=== PATIENT | female | born 1980 ===

== ENCOUNTER 2016-05-26 19:12 | Inpatient (IN) | payer OTHER ==
[~2016-05-26 19:12] MED LIST: Sodium Chloride 0.9% 1,000 ML IV ONE; Sodium Chloride 0.9% 500 ML IV ONE
[2016-05-26] MEDS ORDERED: Sodium Chloride 0.9% 1,000 ML IV STA ×3 (19:42→21:36)
--- NOTE | 2016-05-26 20:49 | ED PDOC ---
HPI: Abdomen Time Seen by Provider: 05/26/16 19:29 Chief Complaint (Nursing): Abdominal Pain History Per: Patient (states that she is who is now 8 weeks and who came to the ER from the [facility] after experience acute onset of severe lower abdominal pain. She denies nausea or vomiting or vaginal bleeding. The pain is located in the lower abdomen with predominance in the left side. She had a miscarriage in February.) History/Exam Limitations: no limitations Onset/Duration Of Symptoms: Sudden Onset Past Medical History Reviewed: Historical Data, Nursing Documentation, Vital Signs Vital Signs: Last Vital Signs Temp 97.9 F 05/26/16 19:13 Pulse 49 L 05/26/16 20:24 Resp 16 05/26/16 20:24 BP 78/46 L 05/26/16 20:24 Pulse Ox 100 05/26/16 21:26 - Medical History PMH: No Chronic Diseases - Surgical History Surgical History: No Surg Hx - Family History Family History: States: No Known Family Hx - Living Arrangements Living Arrangements: With Family - Social History Current smoker - smoking cessation education provided: No - Allergies Allergies/Adverse Reactions: Allergies Allergy/AdvReac Type Severity Reaction Status Date / Time No Known Allergies Allergy Verified 05/26/16 19:13 Review of Systems ROS Statement: Except As Marked, All Systems Reviewed And Found Negative Constitutional: Negative for: Fever, Chills Gastrointestinal: Positive for: Abdominal Pain. Negative for: Nausea, Vomiting , Diarrhea, Constipation Genitourinary Female: Negative for: Dysuria, Vaginal Discharge, Vaginal Bleeding Physical Exam - Reviewed Nursing Documentation Reviewed: Yes Vital Signs Reviewed: Yes - Physical Exam Appears: Positive for: Well, Non-toxic, Uncomfortable Head Exam: Positive for: ATRAUMATIC, NORMAL INSPECTION, NORMOCEPHALIC Skin: Positive for: Normal Color, Warm, DRY Eye Exam: Positive for: EOMI, Normal appearance, PERRL ENT: Positive for: Normal ENT Inspection Neck: Positive for: Normal, Painless ROM Cardiovascular/Chest: Positive for: Regular Rate, Rhythm Respiratory: Positive for: CNT, Normal Breath Sounds Gastrointestinal/Abdominal: Positive for: Bowel Sounds, Tenderness (LLQ and suprapubic area) Back: Positive for: Normal Inspection Extremity: Positive for: Normal ROM Neurologic/Psych: Positive for: Alert, Oriented - Laboratory Results Result Diagrams: 05/26/16 19:51 05/26/16 19:51 - ECG O2 Sat by Pulse Oximetry: 100 - Progress Re-evaluation Time: 22:00 Condition: Unchanged - Critical Care Total Time (In Min): 45 Medical Decision Making Medical Decision Making: patient became hypotensive. A second IV line was placed with additional IVF given. She is awaiting US to be done to exclude threatened ab vs. ectopic . 8.30p - Case d/w Dr. Evans, covering for Dr. Decker. Asked that OB hospitalist be involved if urgent intervention is necessary 10.20 - US preliminary report: rupture ectopic. Dr. Joseph notified and seeing patient now and will take patient to the OR. Disposition - Clinical Impression Clinical Impression: Ruptured ectopic - Patient ED Disposition Is Patient to be Admitted: Yes Doctor Will See Patient In The: Hospital - Disposition Disposition: Transfer of Care Disposition Time: 22:31 Condition: GUARDED - Pt Status Changed To: Hospital Disposition Of: Inpatient - Admit Certification Admit to Inpatient:: After my assessment, the patient will require hospitalization for at least two midnights. This is because of the severity of symptoms shown, intensity of services needed, and/or the medical risk in this patient being treated as an outpatient.
[2016-05-26 20:52] LABS: BASO % 0.3 % (0.0-2.0); EOS # 0.2 K/uL (0.0-0.7); EOS % 1.1 % (0.0-4.0); HEMATOCRIT 36.9 % (34.0-47.0); LYMPH % 33.8 % (20.0-40.0); MEAN CELL VOLUME 82.8 fl (81.0-99.0); MEAN CORPUSCULAR HEMOGLOBIN 27.5 pg (27.0-31.0); MEAN CORPUSCULAR HGB CONC 33.3 g/dL (33.0-37.0); MEAN PLATELET VOLUME 6.9 fl (7.2-11.7); MONO # 0.9 K/uL (0.0-0.8); NEUT # 8.7 K/uL (1.8-7.0); NEUT % 58.8 % (50.0-75.0); NRBC % 0.1 % (0.0-0.0); RED CELL DISTRIBUTION WIDTH 13.3 % (11.5-14.5); WHITE BLOOD COUNT 14.8 K/uL (4.8-10.8)
[2016-05-26 20:55] LABS: BLOOD UREA NITROGEN 11 mg/dl (7-17); CALCIUM 9.1 mg/dL (8.4-10.2); CARBON DIOXIDE 23 mmol/L (22-30); CHLORIDE 102 mmol/L (98-107); GFR AFRICAN-AMERICAN > 60; GLUCOSE,RANDOM 138 mg/dL (65-105); POTASSIUM 3.8 MMOL/L (3.6-5.0); SODIUM 143 mmol/l (132-148)
[2016-05-26] MEDS ORDERED: Propofol 10 mg/ml Inj (20 ML) ONE (23:03)
[2016-05-26] MEDS ORDERED: Neostigmine Methylsulfate 3mg/3ml Syringe IV ONE (23:04)
[2016-05-26] MEDS ORDERED: Rocuronium 10 mg/ml (5 ml) ONE (23:04)
[2016-05-26] MEDS ORDERED: Ketamine 50 mg/ml Inj (10 ml) ONE (23:04)
[2016-05-26] MEDS ORDERED: Midazolam 2 MG/2 ML VIAL ONE (23:04)
[2016-05-26] MEDS ORDERED: Etomidate 20 mg/10ml Inj IV ONE (23:06)
--- NOTE | 2016-05-26 23:09 | US ---
PROCEDURE: OB Pelvic Ultrasound HISTORY: abd pain beta HCG level [id number] COMPARISON: None available. FINDINGS: UTERUS: 6.6 x 4.2 anteverted CERVIX: Long and closed. No cervical abnormality seen. 3.8 cm RIGHT OVARY: Measures 3.6 x 2.7 x 2.9 cm. No mass lesion. Normal flow. LEFT OVARY: Ectopic left adnexa measuring 4.7 x 3.9 x 5.1 cm with pole. No heart rate. FREE FLUID: Large amount of heterogeneous fluid in the pelvis OTHER FINDINGS: Dr. Hill was informed by the pc tech at the time of the exam IMPRESSION: Ectopic left adnexa
[2016-05-26] MEDS ORDERED: Sevoflurane - Inhalation Anesthetic Liq (250 ml) ONE (23:10)
[2016-05-26] MEDS ORDERED: Succinylcholine 200 mg/10 ml Inj IV ONE (23:16)
--- NOTE | 2016-05-26 23:18 | CP.PCM.CON ---
History of Present Illness - History of Present Illness History of Present Illness: Pt presents to er c/o abdominal pain stabbing in nature radiating toward back. Pt had + test scan vaginal bleeding. took no medications Review of Systems - Constitutional Constitutional: As Per HPI - EENT Eyes: As Per HPI Nose/Mouth/Throat: As Per HPI - Breasts Breasts: As Per HPI - Cardiovascular Cardiovascular: As Per HPI - Respiratory Respiratory: As Per HPI - Gastrointestinal Gastrointestinal: As Per HPI - Genitourinary Genitourinary: As Per HPI - Reproductive: Female Reproductive:Female: As Per HPI - Menstruation Menstruation: As Per HPI - Musculoskeletal Musculoskeletal: As Per HPI - Integumentary Integumentary: As Per HPI - Neurological Neurological: As Per HPI - Psychiatric Psychiatric: As Per HPI - Endocrine Endocrine: As Per HPI Past Patient History - Past Social History Smoking Status: Unknown If Ever Smoked - PSYCHIATRIC Hx Substance Use: No Meds Allergies/Adverse Reactions: Allergies Allergy/AdvReac Type Severity Reaction Status Date / Time No Known Allergies Allergy Verified 05/26/16 19:13 Physical Exam - Constitutional Appears: Other - Eye Exam Eye Exam: Normal appearance - ENT Exam ENT Exam: Mucous Membranes Moist - Neck Exam Neck exam: Positive for: Normal Inspection - Respiratory Exam Respiratory Exam: NORMAL BREATHING PATTERN - Cardiovascular Exam Cardiovascular Exam: REGULAR RHYTHM - GI/Abdominal Exam GI & Abdominal Exam: Normal Bowel Sounds - Extremities Exam Extremities exam: Positive for: normal inspection - Back Exam Back exam: NORMAL INSPECTION - Psychiatric Exam Psychiatric exam: Normal Affect Results - Vital Signs Recent Vital Signs: Last Vital Signs Temp 97.9 F 05/26/16 19:41 Pulse 70 05/26/16 22:33 Resp 14 05/26/16 22:33 BP 80/40 L 05/26/16 22:33 Pulse Ox 100 05/26/16 22:33 - Labs Result Diagrams: 05/26/16 19:51 05/26/16 19:51 Assessment & Plan - Assessment and Plan (Free Text) Assessment: ruptured ectopic informed consent obtained discussed r/b/a to surgery all questions answered will admit with discharge in am analgesia as needed
[2016-05-26] MEDS ORDERED: Bupivacaine 0.5% Inj(30mL) IJ ONE (23:55)
[2016-05-27] MEDS ORDERED: HYDROmorphone 0.5 mg/0.5 ml ISec IVP PRN (02:23)
[2016-05-27] MEDS ORDERED: DiphenhydrAMINE 50 mg/ml Inj IVP ONE ×2 (02:28→10:56)
[2016-05-27] MEDS ORDERED: Lactated Ringer's 1,000 ML IV SCH (02:30)
[2016-05-27 03:28] LABS: BASO # 0.1 K/uL (0.0-0.2); BASO % 0.6 % (0.0-2.0); HEMATOCRIT 25.2 % (34.0-47.0); MEAN CELL VOLUME 86.7 fl (81.0-99.0); MEAN CORPUSCULAR HEMOGLOBIN 29.2 pg (27.0-31.0); MEAN CORPUSCULAR HGB CONC 33.6 g/dL (33.0-37.0); MEAN PLATELET VOLUME 6.7 fl (7.2-11.7); MONO # 0.4 K/uL (0.0-0.8); MONO % 2.6 % (0.0-10.0); NEUT # 14.8 K/uL (1.8-7.0); NEUT % 90.8 % (50.0-75.0); PLATELET COUNT 204 K/uL (130-400); RED CELL DISTRIBUTION WIDTH 14.2 % (11.5-14.5); WHITE BLOOD COUNT 16.3 K/uL (4.8-10.8)
[2016-05-27 03:32] LABS: CHLORIDE 115 mmol/L (98-107); GFR AFRICAN-AMERICAN > 60; SODIUM 139 mmol/l (132-148)
[2016-05-27 03:33] LABS: POTASSIUM 4.5 MMOL/L (3.6-5.0)
[2016-05-27 03:35] LABS: ALKALINE PHOSPHATASE 28 U/L (38-126); ALT/SGPT 29 U/L (9-52); AST/SGOT 23 U/L (14-36); BILIRUBIN,TOTAL 0.7 mg/dl (0.2-1.3); BLOOD UREA NITROGEN 8 mg/dl (7-17); CARBON DIOXIDE 15 mmol/L (22-30); GLUCOSE,RANDOM 169 mg/dL (65-105); PARTIAL THROMBOPLASTIN TIME 30.5 SECONDS (23.3-32.5); TOTAL PROTEIN 3.7 G/DL (6.3-8.2)
[2016-05-27 03:39] LABS: ALB/GLOB RATIO 0.9 (1.0-2.1); CALCIUM 5.5 mg/dL (8.4-10.2)
--- NOTE | 2016-05-27 03:47 | CP.PCM.CON ---
History of Present Illness - History of Present Illness History of Present Illness: Attending: Romario Joseph MD PCP: Elmo Decker MD Reason for Consult: Critical care Management Chief Complaint: s/p Ectopic left Laparoscopy HPI: Patient seen post Surgery in the ICU. She is a 36 years old female with no significant medical hx, with a miscarriage in February 2016, and now 8 weeks , came to the ED with an acute unset of a sharp, left lower abdominal pain at rest, radiating to the back. not associated with nausea,vomits , dysuria nor urinary frequency nor fever. Trans vaginal Ultrasound in ED showed left adnexal ectopic . She was taken to surgery for an Ectopic left laparoscopy. where she was found to have lost 2 Liters of blood from the ruptured ectopic . She is now in ICU for Critical care management and is been transfused Blood products. Her initial Hb was 12g/dl and has fallen to 8.5 g/dl with 2 units of PRBC administered. PMH: No chronic Disease PSH: No Surg Hx SH: No cigarettes Smoking; No Alcohol use; No illegal drug use; Live with the family FH: No Known Family Hx Allergies: NKDA Review of Systems - Review of Systems Systems not reviewed;Unavailable: Other Review of Systems: Review of systems is limited because the patient is post Surgery and some what sedated. - Constitutional Constitutional: absent: Fever - EENT Nose/Mouth/Throat: absent: Epistaxis, Nasal Discharge - Cardiovascular Cardiovascular: absent: Chest Pain, Dyspnea - Respiratory Respiratory: absent: Cough, Dyspnea, Wheezing - Gastrointestinal Gastrointestinal: absent: Diarrhea, Vomiting Additional comments: left lower quadrant abdominal pain - Genitourinary Genitourinary: absent: Dysuria, Urinary Frequency - Neurological Neurological: absent: Focal Weakness - Psychiatric Psychiatric: absent: Anxiety, Depression - Endocrine Endocrine: absent: Polydipsia, Polyphagia - Hematologic/Lymphatic Hematologic: absent: Easy Bleeding, Easy Bruising Past Patient History - Past Medical History & Family History Past Medical History?: No - Past Social History Smoking Status: Never Smoked Chewing Tobacco Use: No Cigar Use: No Alcohol: None Drugs: Denies Home Situation {Lives}: With Family - CARDIAC Hx Cardiac Disorders: No - PULMONARY Hx Respiratory Disorders: No - NEUROLOGICAL Hx Neurological Disorder: No - HEENT Hx HEENT Problems: No - RENAL Hx Chronic Kidney Disease: No - ENDOCRINE/METABOLIC Hx Endocrine Disorders: No - HEMATOLOGICAL/ONCOLOGICAL Hx Blood Disorders: No - INTEGUMENTARY Hx Dermatological Problems: No - MUSCULOSKELETAL/RHEUMATOLOGICAL Hx Musculoskeletal Disorders: No - GASTROINTESTINAL Hx Gastrointestinal Disorders: No - GENITOURINARY/GYNECOLOGICAL Hx Genitourinary Disorders: No - PSYCHIATRIC Hx Emotional Abuse: No Hx Physical Abuse: No Hx Substance Use: No - SURGICAL HISTORY Hx Surgeries: Yes Other/Comment: Ectopic left laparoscopy - ANESTHESIA Hx Anesthesia: Yes Hx Anesthesia Reactions: No Meds Allergies/Adverse Reactions: Allergies Allergy/AdvReac Type Severity Reaction Status Date / Time No Known Allergies Allergy Verified 05/26/16 19:13 - Medications Medications: Current Medications Hydromorphone HCl (Dilaudid) 0.5 mg IVP Q5M PRN PRN Reason: Pain, moderate (4-7) Stop: 05/27/16 04:24 Lactated Ringer's (Lactated Ringer's) 1,000 mls @ 125 mls/hr IV .Q8H RAKAN Stop: 05/27/16 23:59 Meperidine HCl (Demerol) 25 mg IVP ONCE PRN PRN Reason: Shivering/Rigor Stop: 05/27/16 04:25 Ondansetron HCl (Zofran Inj) 4 mg IVP ONCE PRN PRN Reason: Nausea/Vomiting Stop: 05/27/16 04:24 Physical Exam - Constitutional Appears: No Acute Distress - Head Exam Head Exam: ATRAUMATIC, NORMAL INSPECTION, NORMOCEPHALIC - Eye Exam Eye Exam: Normal appearance Pupil Exam: NORMAL ACCOMODATION - ENT Exam ENT Exam: Normal Exam, Normal External Ear Exam, Normal Oropharynx - Neck Exam Neck exam: Positive for: Normal Inspection. Negative for: Lymphadenopathy, Tenderness - Respiratory Exam Respiratory Exam: Clear to Auscultation Bilateral. absent: Rales, Rhonchi, Wheezes - Cardiovascular Exam Cardiovascular Exam: REGULAR RHYTHM, RRR, +S1, +S2. absent: Gallop - GI/Abdominal Exam Additional comments: Post surgical dressings. Soft decreased bowel sounds, Post surgical abdominal pains. - Rectal Exam Rectal Exam: Deferred - Extremities Exam Extremities exam: Positive for: normal inspection. Negative for: calf tenderness, full ROM, pedal edema - Back Exam Back exam: absent: CVA tenderness (L), CVA tenderness (R) - Neurological Exam Neurological exam: Reflexes Normal Additional comments: Sleepy, no facial droop, moving all extremities - Psychiatric Exam Psychiatric exam: Flat Affect - Skin Skin Exam: Dry, Intact, Normal Color Additional comments: Cool Skin Results - Vital Signs Recent Vital Signs: Last Vital Signs Temp 95.0 F L 05/27/16 02:15 Pulse 78 05/27/16 02:15 Resp 24 05/27/16 02:15 BP 105/66 05/27/16 02:15 Pulse Ox 100 05/27/16 02:15 - Labs Result Diagrams: 05/27/16 03:27 05/27/16 03:27 Labs: Laboratory Results - last 24 hr 05/27/16 03:27 WBC 16.3 H RBC 2.91 L Hgb 8.5 L D Hct 25.2 L MCV 86.7 D MCH 29.2 MCHC 33.6 RDW 14.2 Plt Count 204 D MPV 6.7 L Neut % (Auto) 90.8 H Lymph % (Auto) 6.0 L [place] % (Auto) 2.6 Eos % (Auto) 0.0 Baso % (Auto) 0.6 Neut # 14.8 H Lymph # 1.0 [place] # 0.4 Eos # 0.0 Baso # 0.1 PT 13.3 H INR 1.28 H APTT 30.5 Sodium 139 Potassium 4.5 Chloride 115 H Carbon Dioxide 15 L Anion Gap 14 BUN 8 Creatinine 0.5 L Est GFR ( Amer) > 60 Est GFR (Non-Af Amer) > 60 Random Glucose 169 H Calcium 5.5 L* D Total Bilirubin 0.7 AST 23 ALT 29 Alkaline Phosphatase 28 L Total Protein 3.7 L Albumin 1.8 L Globulin 1.9 L Albumin/Globulin Ratio 0.9 L - Imaging and Cardiology Transvaginal US Status: Report reviewed by me Additional comment: Ectopic left adnexa. Assessment & Plan - Assessment and Plan (Free Text) Assessment: #. Ruptured Ectopic s/p Ectopic left Laparoscopy #. Acute Blood loss Anemia #. Reactive Neutrophilic Leukocytosis Plan: 36 years old female with no significant medical hx, with a miscarriage in February 2016, and now 8 weeks , came to the ED with an acute unset of a sharp, left lower abdominal pain at rest, radiating to the back. Trans vaginal Ultrasound in ED showed left adnexal ectopic . She was taken to surgery for an Ectopic left laparoscopy. where she was found to have lost 2 Liters of blood from the ruptured ectopic . She is now in ICU for Critical care management and is been transfused Blood products. Her initial Hb was 12g/dl and has fallen to 8.5 g/dl with 2 units of PRBC administered. #. Ruptured Ectopic s/p Ectopic left Laparoscopy - [facility] management -Pain management #. Acute Blood loss Anemia - 2 units of PRBC already transfused and Hb found to have fallen from 12g/dl to 8.5g/dl. I will transfuse 2 more units of PRBC. But a unit of FFP before the first unit of PRBC and 1 unit of Platelets after the first unit of PRBC. - Follow HB #. Reactive Neutrophilic Leukocytosis - follow WBC #. Hypocalcemia corrected to 7.6mg/dl - Follow electrolytes #. DVT Prophylaxis with SCD #. Code Status Full - Date & Time Date: 05/27/16 Time: 03:47
[2016-05-27 05:48] LABS: NEUTROPHIL 89 % (42-75); TOTAL CELLS COUNTED 100
[2016-05-27 05:49] LABS: ACANTHOCYTES SLIGHT
--- NOTE | 2016-05-27 09:30 | OP ---
PROCEDURE DATE: 05/27/2016 PREOPERATIVE DIAGNOSIS: Ruptured ectopic . POSTOPERATIVE DIAGNOSIS: Ruptured ectopic . OPERATIONS PERFORMED: Operative laparoscopy, left salpingectomy. SURGEON: Brenna Joseph MD WELDER APPRENTICE COMBINATION: Beti Fleming MD ANESTHESIA: General, administered by Dr. Goldsmith. ESTIMATED BLOOD LOSS: There were 2 liters of hemoperitoneum. URINE OUTPUT: Rizzo catheter put out approximately 500 mL of clear urine. FLUIDS: The patient received approximately 2 liters of D5LR intraoperatively. OPERATIVE FINDINGS: Two liters of hemoperitoneum; left ectopic with tubal rupture, activel y bleeding; normal uterus and right tube. PROCEDURE: After informed consent was obtained, the patient was taken to the operating room where ed smith was given general anesthesia. The patient was placed in dorsal lithotomy position. She was in the [facility]. She was prepped and draped in the usual sterile fashion. Attention was then turn ed to the vagina. A weighted speculum was inserted in the vagina. Cervix was visualized and grasped with a single-tooth tenaculum and gently dilated. A HUMI uterine manipulator was inserted into the uterine cavity as a means to manipulate the uterus. A Rizzo catheter was then inserted into the blad liset to monitor the patient's urinary output. Attention was then turned to the umbilical fold. Ivon ine was infused and a 5 mm incision was made. The Veress needle was then inserted into the abdominal cavity and placement was confirmed with a fluid-filled syringe. The abdomen was then insufflated to 15 mmHg. A 5 mm port was then introduced into the abdominal cavity and placement was confirmed with the laparoscope. The abdomen was surveyed with the findings noted as above. There is approximately 2 liters of blood noted in the abdomen. The blood clots were evacuated using a suction device. The uterus was then identified. The left fallopian tube was actively bleeding and ruptured. An additio nal port was then placed approximately 3 cm superior to the right anterior iliac crest. Marcaine was infused and a 5 mm incision was made. Attention was then turned to the left superior-anterior iliac crest at approximately 3 cm superior to the iliac crest. A 10 mm incision was made after the infusi on of Marcaine. A 10 mm port was introduced into the abdominal cavity under direct visualization. T he hemoperitoneum was then suctioned using a suction device. The left tube was grasped with a graspe r and resected using the LigaSure device. The abdomen was then copiously irrigated. The irrigant wa s removed with a suction device. Hemostasis was noted. All instruments were then removed from the a bdomen. The 5 mm sites were closed with Dermabond. The fascia of the 10 mm port was closed with 0 V icryl and the skin was closed with Dermabond. All sponge, lap, needle, and instrument counts were co rrect x 2. Transfusion was started intraoperatively. Two units of blood were ordered and started in the intraoperative period. The patient was awakened from general anesthesia and taken to recovery r oom in awake and stable condition. Ana Maria Joseph MD cc: [phone] TT: 05/27/2016 09:30:01 gibson
--- NOTE | 2016-05-27 12:11 | CP.CCUPN ---
<Mike Kruger - Last Filed: 05/27/16 17:48> CCU Subjective - Physician Review Subjective (Free Text): 05/27/16 17:20 Pt. seen and examined at bedside with Dr. Adair s/p Left sided Salpingectomy due to ectopic pregnacy complaining of abdominal pain described as sharp, located under her rib-cage and sometimes radiating to her shoulder. Pain is worsened by deep breathing and relieved with medications. On ROS, pt. denies any headache, lightheadedness, N/V/D/F/C, chest pain, feeling short of breath. Pt. also reports no BM as of yet and does not remember passing Flatus but tolerating regular diet and no complaints of Nausea or vomiting. 05/27/16 17:28 05/27/16 17:47 CCU Objective - Vital Signs / Intake & Output Vital Signs (Last 4 hours): Vital Signs Pulse Resp BP Pulse Ox 05/27/16 10:00 114 H 20 107/55 L 100 Intake and Output (Last 8hrs): Intake & Output 05/26/16 05/27/16 05/27/16 22:59 06:59 14:59 Intake Total 500 565 Output Total 800 Balance -300 565 Intake: IV 500 Oral 240 Blood Product 325 Output: Urine 800 Urethral (Rizzo) 800 - Physical Exam Head: Positive for: Atraumatic, Normocephalic Neck: Positive for: Normal Range of Motion Respiratory/Chest: Positive for: Clear to Auscultation Cardiovascular: Positive for: Normal S1, S2 Abdomen: Positive for: Other (Hypoactive bowel sounds, Moderate distension, generalized tenderness to palpation, No rebound, 3 laprascocpic incisions sealed with dermabond intact) Lower Extremity: Positive for: Normal Inspection, Capillary Refill < 2 s. Negative for: Edema Neurological: Positive for: CN II-XII Intact Skin: Positive for: Warm, Dry Other physical findings (Free Text): + labile mood - Medications Active Medications: Active Medications Generic Name Dose Route Start Last Admin Trade Name Freq PRN Reason Stop Dose Admin Morphine Sulfate 4 mg 05/27/16 06:04 05/27/16 06:13 Morphine IVP 4 mg Q6 PRN Administration Pain, severe (8-10) Morphine Sulfate 2 mg 05/27/16 06:05 Morphine IVP Q6 PRN Pain, moderate (4-7) - Patient Studies Lab Studies: Lab Studies 05/27/16 Range/Units 03:27 WBC 16.3 H (4.8-10.8) K/uL RBC 2.91 L (3.80-5.20) Mil/uL Hgb 8.5 L D (12.0-16.0) g/dL Hct 25.2 L (34.0-47.0) % MCV 86.7 D (81.0-99.0) fl MCH 29.2 (27.0-31.0) pg MCHC 33.6 (33.0-37.0) g/dL RDW 14.2 (11.5-14.5) % Plt Count 204 D (130-400) K/uL MPV 6.7 L (7.2-11.7) fl Neut % (Auto) 90.8 H (50.0-75.0) % Lymph % (Auto) 6.0 L (20.0-40.0) % [place] % (Auto) 2.6 (0.0-10.0) % Eos % (Auto) 0.0 (0.0-4.0) % Baso % (Auto) 0.6 (0.0-2.0) % Neut # 14.8 H (1.8-7.0) K/uL Lymph # 1.0 (1.0-4.3) K/uL [place] # 0.4 (0.0-0.8) K/uL Eos # 0.0 (0.0-0.7) K/uL Baso # 0.1 (0.0-0.2) K/uL Neutrophils % (Manual) 89 H (42-75) % Band Neutrophils % 5 H (0-2) % Lymphocytes % (Manual) 3 L (20-50) % Monocytes % (Manual) 3 (0-10) % Platelet Estimate Normal (NORMAL) Anisocytosis (manual) Slight Acanthocytes (Spur) Slight PT 13.3 H (9.6-11.2) SECONDS INR 1.28 H (0.92-1.08) APTT 30.5 (23.3-32.5) SECONDS Sodium 139 (132-148) mmol/l Potassium 4.5 (3.6-5.0) MMOL/L Chloride 115 H (98-107) mmol/L Carbon Dioxide 15 L (22-30) mmol/L Anion Gap 14 (10-20) BUN 8 (7-17) mg/dl Creatinine 0.5 L (0.7-1.2) mg/dL Est GFR ( Amer) > 60 Est GFR (Non-Af Amer) > 60 Random Glucose 169 H (65-105) mg/dL Calcium 5.5 L* D (8.4-10.2) mg/dL Total Bilirubin 0.7 (0.2-1.3) mg/dl AST 23 (14-36) U/L ALT 29 (9-52) U/L Alkaline Phosphatase 28 L (38-126) U/L Total Protein 3.7 L (6.3-8.2) G/DL Albumin 1.8 L (3.5-5.0) g/dL Globulin 1.9 L (2.2-3.9) gm/dL Albumin/Globulin Ratio 0.9 L (1.0-2.1) Laboratory Results - last 24 hr 05/27/16 03:27 WBC 16.3 H RBC 2.91 L Hgb 8.5 L D Hct 25.2 L MCV 86.7 D MCH 29.2 MCHC 33.6 RDW 14.2 Plt Count 204 D MPV 6.7 L Neut % (Auto) 90.8 H Lymph % (Auto) 6.0 L [place] % (Auto) 2.6 Eos % (Auto) 0.0 Baso % (Auto) 0.6 Neut # 14.8 H Lymph # 1.0 [place] # 0.4 Eos # 0.0 Baso # 0.1 Neutrophils % (Manual) 89 H Band Neutrophils % 5 H Lymphocytes % (Manual) 3 L Monocytes % (Manual) 3 Platelet Estimate Normal Anisocytosis (manual) Slight Acanthocytes (Spur) Slight PT 13.3 H INR 1.28 H APTT 30.5 Sodium 139 Potassium 4.5 Chloride 115 H Carbon Dioxide 15 L Anion Gap 14 BUN 8 Creatinine 0.5 L Est GFR ( Amer) > 60 Est GFR (Non-Af Amer) > 60 Random Glucose 169 H Calcium 5.5 L* D Total Bilirubin 0.7 AST 23 ALT 29 Alkaline Phosphatase 28 L Total Protein 3.7 L Albumin 1.8 L Globulin 1.9 L Albumin/Globulin Ratio 0.9 L Review of Systems - Review of Systems Review of Systems: See HPI Critical Care Progress Note - Nutrition Nutrition: Nutrition Category Date Time Status Regular Diet [DIET] Diets 05/27/16 Breakfast Active Assessment/Plan - Assessment and Plan (Free Text) Assessment: 36 y.o. female with no significan PMHx or PSHx s/p Left salpinectomy due to Ectopic Pregancy 1- Ectopic s/p Left Laproscpic Salpingectomy POD #0 a- Complete transfusion of blood products b- Post-transfusion CBC c- A.M. Labs CBC, CMP d- A.M. Orthostatic Vitals e- Encourage ambulation f- Regular diet g- Follow up with ObGYN- Dr. Joseph for post-op evaluation h- Morphine for pain management i- Zofran PRN 2- DVT prophylaxis a- SCD 3- Diet a- Regular <Bernabe Phoenix - Last Filed: 05/27/16 18:52> CCU Subjective - Physician Review Subjective (Free Text): Attestation: Patient seen and examined at the bedside with Resident Dr. Mic Kruger; and I agree with his outline of plans and management documented below as discussed on AM rounds reflecting my review of all applicable clinical data, and participation in the care of the patient throughout the day in ICU; today, May 27, 2016.
--- NOTE | 2016-05-27 17:17 | CP.PCM.PN ---
Subjective - Date & Time of Evaluation Date of Evaluation: 05/27/16 Time of Evaluation: 17:00 - Subjective Subjective: s: tolerated reg diet. denies flatus or bm. not yet oob. herrera cath still in place Objective - Vital Signs/Intake and Output Vital Signs (last 24 hours): Temp Pulse Resp BP Pulse Ox 99 F 80 26 H 101/47 L 98 05/27/16 16:00 05/27/16 16:00 05/27/16 16:00 05/27/16 16:00 05/27/16 16:00 Intake and Output: 05/27/16 05/27/16 06:59 18:59 Intake Total 500 1299 Output Total 800 1300 Balance -300 -1 - Medications Medications: Current Medications Acetaminophen (Tylenol 325mg Tab) 650 mg PO Q6 PRN PRN Reason: Pain, moderate (4-7) Last Admin: 05/27/16 13:08 Dose: 650 mg Morphine Sulfate (Morphine) 4 mg IVP Q6 PRN PRN Reason: Pain, severe (8-10) Last Admin: 05/27/16 06:13 Dose: 4 mg Morphine Sulfate (Morphine) 2 mg IVP Q6 PRN PRN Reason: Pain, moderate (4-7) - Labs Labs: 05/27/16 03:27 05/27/16 03:27 PT 13.3 SECONDS (9.6-11.2) H 05/27/16 03:27 INR 1.28 (0.92-1.08) H 05/27/16 03:27 APTT 30.5 SECONDS (23.3-32.5) 05/27/16 03:27 - Constitutional Appears: Well, No Acute Distress - Head Exam Head Exam: ATRAUMATIC, NORMOCEPHALIC - Respiratory Exam Respiratory Exam: NORMAL BREATHING PATTERN. absent: Accessory Muscle Use - GI/Abdominal Exam GI & Abdominal Exam: Soft, Tenderness (mild tenderness to palpation). absent: Distended, Guarding, Rigid - Psychiatric Exam Psychiatric exam: Normal Affect Assessment and Plan - Assessment and Plan (Free Text) Assessment: Assessment POD#0- S/P Laparoscopic Left Salpingectomy for Left Tubal Ectopic Inraoperative finding of hemoperitoneum c/w 2 liters of blood Secondary Anemia Plan: pt to complete 3rd unit o prbc by late tonight or early tomorrow morning. d/c herrera oob ok for d/c home when ambulating and voiding.
[2016-05-28 00:01] LABS: HEMATOCRIT 27.2 % (34.0-47.0); MEAN CELL VOLUME 85.5 fl (81.0-99.0); MEAN CORPUSCULAR HEMOGLOBIN 29.5 pg (27.0-31.0); MEAN CORPUSCULAR HGB CONC 34.5 g/dL (33.0-37.0); RED CELL DISTRIBUTION WIDTH 14.3 % (11.5-14.5); WHITE BLOOD COUNT 13.6 K/uL (4.8-10.8)
[2016-05-28 05:42] LABS: MEAN CELL VOLUME 85.5 fl (81.0-99.0); MEAN CORPUSCULAR HEMOGLOBIN 29.4 pg (27.0-31.0); MEAN CORPUSCULAR HGB CONC 34.4 g/dL (33.0-37.0); RED CELL DISTRIBUTION WIDTH 14.4 % (11.5-14.5); WHITE BLOOD COUNT 11.5 K/uL (4.8-10.8)
[2016-05-28 05:59] LABS: ALKALINE PHOSPHATASE 51 U/L (38-126); ALT/SGPT 22 U/L (9-52); AST/SGOT 21 U/L (14-36); BILIRUBIN,TOTAL 0.5 mg/dl (0.2-1.3); BLOOD UREA NITROGEN 4 mg/dl (7-17); CALCIUM 7.3 mg/dL (8.4-10.2); CARBON DIOXIDE 23 mmol/L (22-30); CHLORIDE 107 mmol/L (98-107); GFR AFRICAN-AMERICAN > 60; GLUCOSE,RANDOM 98 mg/dL (65-105); POTASSIUM 3.3 MMOL/L (3.6-5.0); SODIUM 141 mmol/l (132-148)
--- NOTE | 2016-05-28 08:36 | CP.PCM.DIS ---
Provider - Provider Date of Admission: 05/26/16 22:31 Attending physician: Ana Maria Joseph MD Primary care physician: Elmo Decker MD Consults: Rich Doran (Hospitalist) Time Spent in preparation of Discharge (in minutes): 30 Diagnosis - Discharge Diagnosis (1) Ruptured ectopic Status: Resolved Priority: Medium Hospital Course - Lab Results Lab Results: Most Recent Lab Values WBC 11.5 K/uL (4.8-10.8) H 05/28/16 04:40 RBC 3.16 Mil/uL (3.80-5.20) L 05/28/16 04:40 Hgb 9.3 g/dL (12.0-16.0) L 05/28/16 04:40 Hct 27.0 % (34.0-47.0) L 05/28/16 04:40 MCV 85.5 fl (81.0-99.0) 05/28/16 04:40 MCH 29.4 pg (27.0-31.0) 05/28/16 04:40 MCHC 34.4 g/dL (33.0-37.0) 05/28/16 04:40 RDW 14.4 % (11.5-14.5) 05/28/16 04:40 Plt Count 196 K/uL (130-400) 05/28/16 04:40 MPV 6.7 fl (7.2-11.7) L 05/27/16 03:27 Neut % (Auto) 90.8 % (50.0-75.0) H 05/27/16 03:27 Lymph % (Auto) 6.0 % (20.0-40.0) L 05/27/16 03:27 Johnson % (Auto) 2.6 % (0.0-10.0) 05/27/16 03:27 Eos % (Auto) 0.0 % (0.0-4.0) 05/27/16 03:27 Baso % (Auto) 0.6 % (0.0-2.0) 05/27/16 03:27 Neut # 14.8 K/uL (1.8-7.0) H 05/27/16 03:27 Lymph # 1.0 K/uL (1.0-4.3) 05/27/16 03:27 Johnson # 0.4 K/uL (0.0-0.8) 05/27/16 03:27 Eos # 0.0 K/uL (0.0-0.7) 05/27/16 03:27 Baso # 0.1 K/uL (0.0-0.2) 05/27/16 03:27 Neutrophils % (Manual) 89 % (42-75) H 05/27/16 03:27 Band Neutrophils % 5 % (0-2) H 05/27/16 03:27 Lymphocytes % (Manual) 3 % (20-50) L 05/27/16 03:27 Monocytes % (Manual) 3 % (0-10) 05/27/16 03:27 Platelet Estimate Normal (NORMAL) 05/27/16 03:27 Anisocytosis (manual) Slight 05/27/16 03:27 Acanthocytes (Spur) Slight 05/27/16 03:27 PT 13.3 SECONDS (9.6-11.2) H 05/27/16 03:27 INR 1.28 (0.92-1.08) H 05/27/16 03:27 APTT 30.5 SECONDS (23.3-32.5) 05/27/16 03:27 Sodium 141 mmol/l (132-148) 05/28/16 04:40 Potassium 3.3 MMOL/L (3.6-5.0) L 05/28/16 04:40 Chloride 107 mmol/L (98-107) 05/28/16 04:40 Carbon Dioxide 23 mmol/L (22-30) 05/28/16 04:40 Anion Gap 14 (10-20) 05/28/16 04:40 BUN 4 mg/dl (7-17) L 05/28/16 04:40 Creatinine 0.6 mg/dL (0.7-1.2) L 05/28/16 04:40 Est GFR ( Amer) > 60 05/28/16 04:40 Est GFR (Non-Af Amer) > 60 05/28/16 04:40 Random Glucose 98 mg/dL (65-105) 05/28/16 04:40 Calcium 7.3 mg/dL (8.4-10.2) L 05/28/16 04:40 Total Bilirubin 0.5 mg/dl (0.2-1.3) 05/28/16 04:40 AST 21 U/L (14-36) 05/28/16 04:40 ALT 22 U/L (9-52) 05/28/16 04:40 Alkaline Phosphatase 51 U/L (38-126) 05/28/16 04:40 Total Protein 5.0 G/DL (6.3-8.2) L 05/28/16 04:40 Albumin 2.5 g/dL (3.5-5.0) L D 05/28/16 04:40 Globulin 2.4 gm/dL (2.2-3.9) 05/28/16 04:40 Albumin/Globulin Ratio 1.0 (1.0-2.1) 05/28/16 04:40 Beta HCG, Quant 64057.00 mIU/mL 05/26/16 19:51 Blood Type B POSITIVE 05/26/16 20:10 Blood Type Confirm B POSITIVE 05/26/16 21:42 Antibody Screen Negative 05/26/16 20:10 Crossmatch See Detail 05/26/16 20:10 BBK History Checked No verified bt 05/26/16 20:10 - Hospital Course Hospital Course: 36 yr old F with no significant PMHx presented to the ER from the [facility] on evening of 05/26/16 after experiencing acute onset severe abdominal pain. Patient was found to be hypotensive, received IVF bolus in ER, US preliminary report showed ruptured ectopic , patient was taken to the OR that evening, a laparoscopic left salpingectomy for left tubal ectopic was performed. Intraoperative finding of hemoperitoneum-2 liters of blood, patient received 2 units of pRBC's and postoperatively was was transferred to ICU for critical care management. Patient received 2 additional units of pRBC's on the floor, blood pressure improved, Hgb has remained stable, is able to ambulate , tolerating PO diet and is having normal urine output. Denies weakness, dizziness, palpitations, pain is managed with medication. Patient has no other concerns or complaints at this time. - Date & Time of H&P Date of H&P: 05/26/16 Time of H&P: 23:15 Discharge Exam - Head Exam Head Exam: ATRAUMATIC, NORMOCEPHALIC - Eye Exam Eye Exam: EOMI, PERRL - ENT Exam ENT Exam: Mucous Membranes Moist - Neck Exam Neck exam: Full Rom - Respiratory Exam Respiratory Exam: Clear to PA & Lateral - Cardiovascular Exam Cardiovascular Exam: REGULAR RHYTHM, +S1, +S2. absent: Rubs Additional comments: no murmurs - GI/Abdominal Exam GI & Abdominal Exam: Normal Bowel Sounds, Soft, Tenderness (to palpation) - Extremities Exam Extremities exam: full ROM (no pedal edema) - Back Exam Back exam: absent: CVA tenderness (L), CVA tenderness (R) - Psychiatric Exam Psychiatric exam: Normal Affect, Normal Mood - Skin Skin Exam: Dry, Intact (bilateral lower abdomen laparoscopic incisions are clean /dry/intact) Discharge Plan - Follow Up Plan Condition: GUARDED Disposition: HOME/ ROUTINE Patient education suggested?: Yes Additional Instructions: -Follow up with your doctor within 1 week -Follow up with [employer] Dr. Joseph -adequate hydration and PO intake -Motrin 600 mg PO Q6 PRN mild pain dispense #30 -Percocet 5/325 mg PO Q4 PRN moderate pain dispense # 20 tabs -Colace 100mg PO BID dispense # 28 tabs -no heavy lifting, no exercise Referrals: Elmo Decker MD [Primary Care Provider] -
[2016-05-28 10:40] VITALS: O2SAT 97
[2016-05-28 10:47] VITALS: BP 102/54; PULSE 101; RESP 19
[2016-05-28 13:24] VITALS: TEMP 98.3
--- NOTE | 2016-05-28 16:03 | RAD ---
HISTORY: Abdominal pain s/p Lap Salpingectomy/Distension COMPARISON: No prior. FINDINGS: BOWEL: There is moderate amount of stool in the ascending colon and gas in the rectum. There is no evidence of bowel dilatation. Gas filled bowel loops are identified. BONES: Normal. OTHER FINDINGS: None. IMPRESSION: Nonspecific bowel gas pattern.
--- NOTE | 2016-06-17 09:54 | OP ---
PROCEDURE DATE: 05/27/[address] Fleming was the therapy administrative assistant in the procedure. She helped create exposure, obtain hemostasis and was helpful in extraction of the ectopic and closure of the patient. The procedure would not have been possible without her assistance. Ana Maria Joseph MD cc: [id number] TT: 06/17/2016 09:54:06 en
== END 2016-05-28 13:26 | disposition home or self-care (01) | DRG 777 ==
LOC: H.ER 19:12 → H.ERHOLD 22:31 → OBSVTOIN 22:31 → H.ICU/CCU 05-27 01:20
PROVIDERS: ADMIT Obstetrics & Gynecology Gynecology; ATTEND Obstetrics & Gynecology Gynecology
PROC: 0UT64ZZ Resection of Left Fallopian Tube, Percutaneous Endoscopic Approach (ICD-10-PCS; principal; 2016-05-25)
PROC: 10T24ZZ Resection of Products of Conception, Ectopic, Percutaneous Endoscopic Approach (ICD-10-PCS; 2016-05-25)
PROC: 30233N1 Transfusion of Nonautologous Red Blood Cells into Peripheral Vein, Percutaneous Approach (ICD-10-PCS; 2016-05-27)
DX: O00.80 Other ectopic pregnancy without intrauterine pregnancy (principal); I95.9 Hypotension, unspecified; D62 Acute posthemorrhagic anemia; D72.828 Other elevated white blood cell count; E83.51 Hypocalcemia